=== PATIENT | female | born 1980 | race Caucasian/White ===

== ENCOUNTER → 2018-05-04 | Outpatient (CLI) | payer OTHER ==
--- NOTE | 2018-05-04 11:49 | US ---
EXAMINATION TYPE: US thyroid st tissue head/neck DATE OF EXAM: 05/04/2018 COMPARISON: NONE CLINICAL HISTORY: E04.1 Nontoxic single thyroid nodule. GLAND SIZE: Right Lobe: 4.1 x 1.4 x 1.6 cm Overall Parenchyma: homogenous Left Lobe: 4.4 x 1.2 x 1.8 cm Overall Parenchyma: heterogeneous Isthmus Thickness: 0.4 cm NODULES RIGHT: # of nodules measured on right: 1 1. 0.6 X 0.4 x 0.5 cm isoechoic solid nodule at the mid pole with well-defined margins. This nodul e is wider than tall and shows intranodular vascularity. No prior at this facility. LEFT: # of nodules measured on left: 2 1. 1.5 X 1.1 x 1.2 cm isoechoic mixed nodule at the lower pole with well-defined margins. This nodu le is wider than tall and shows no intranodular vascularity. No prior at this facility. 2. 0.8 X 0.6 x 0.9 cm isoechoic solid nodule at the upper pole with well-defined margins. This nodu le is wider than tall and shows intranodular vascularity. No prior at this facility. ISTHMUS: # of nodules measured in the isthmus: 1 1. 0.8 X 0.6 x 0.6 cm hypoechoic solid nodule at the right pole with well-defined margins. This no dule is wider than tall and shows intranodular vascularity. No prior at this facility. Bilateral neck scanned, no evidence of lymphadenopathy. IMPRESSION: Findings compatible with multinodular goiter. Dominant nodule lower pole left lobe of the gland.
== END | disposition home or self-care (01) ==
LOC: RADUSWWP 10:10
DX: E04.2 Nontoxic multinodular goiter (principal)
CPT/HCPCS: 76536

== ENCOUNTER 2018-05-12 07:51 | Emergency (ER) | payer MEDICAID, OTHER ==
[2018-05-12] MEDS ORDERED: SODIUM CHLORIDE 0.9% 500 ML 500 ML IV STA (08:34)
[2018-05-12] MEDS ORDERED: valACYclovir 500 MG TAB PO STA (08:35)
[2018-05-12] MEDS ORDERED: predniSONE 20 MG TAB PO STA (08:52)
--- NOTE | 2018-05-12 08:55 | ED ---
General Adult HPI - General Chief complaint: Neuro Symptoms/Deficit Stated complaint: facial droop Time Seen by Provider: 05/12/18 08:05 Source: patient, RN notes reviewed Mode of arrival: ambulatory Limitations: no limitations - History of Present Illness Initial comments: This is a 37-year-old female comes in complaining of left-sided facial droop. Patient states she woke up with a facial droop. Patient states the lesion she noticed yesterday before bed was that she was having some tingling in the left side of her tongue. Patient states she woke up today and was having a hard time closing her eye and forming a normal smile. Patient states the side of her face is tingly but not numb. Patient denies any loss of vision patient denies any significant speech disturbance aside from the droopiness making a little mumbles. Patient denies any numbness or weakness. Patient denies any chest pain palpitations difficulty breathing shortness of breath per patient denies any recent fever chills or cough. Patient denies any upper respiratory infection recently. Patient states she's never had symptoms similar to this in the past. - Related Data Previous Rx's Medication Instructions Recorded predniSONE 30 mg PO BID 10 Days tab 05/12/18 valACYclovir HCL [Valacyclovir] 1,000 mg PO Q8H 10 Days tab 05/12/18 Allergies Allergy/AdvReac Type Severity Reaction Status Date / Time No Known Allergies Allergy Verified 05/12/18 08:26 Review of Systems ROS Statement: Those systems with pertinent positive or pertinent negative responses have been documented in the HPI. ROS Other: All systems not noted in ROS Statement are negative. Past Medical History Past Medical History: No Reported History History of Any Multi-Drug Resistant Organisms: None Reported Past Surgical History: No Surgical Hx Reported Past Psychological History: No Psychological Hx Reported Smoking Status: Current every day smoker Past Alcohol Use History: None Reported Past Drug Use History: None Reported General Exam - General Exam Comments Initial Comments: GENERAL: Patient is well-developed and well-nourished. Patient is nontoxic and well- hydrated and is in mild distress. ENT: Neck is soft and supple. No significant lymphadenopathy is noted. Oropharynx is clear. Moist mucous membranes. Neck has full range of motion without eliciting any pain. EYES: The sclera were anicteric and conjunctiva were pink and moist. Extraocular movements were intact and pupils were equal round and reactive to light. Eyelids were unremarkable. PULMONARY: Unlabored respirations. Good breath sounds bilaterally. No audible rales rhonchi or wheezing was noted. CARDIOVASCULAR: There is a regular rate and rhythm without any murmurs gallops or rubs. ABDOMEN: Soft and nontender with normal bowel sounds. No palpable organomegaly was noted. There is no palpable pulsatile mass. SKIN: Skin is clear with no lesions or rashes and otherwise unremarkable. NEUROLOGIC: Patient is alert and oriented x3. Left-sided facial droop including her forehead. Motor and sensory are also intact. Normal speech, volume and content. Symmetrical smile. MUSCULOSKELETAL: Normal extremities with adequate strength and full range of motion. LYMPHATICS: No significant lymphadenopathy is noted PSYCHIATRIC: Normal psychiatric evaluation. Limitations: no limitations Course Vital Signs 05/12/18 05/12/18 05/12/18 08:07 08:30 09:30 Temperature 98.3 F 98 F Pulse Rate 90 76 81 Respiratory 18 18 18 Rate Blood Pressure 140/89 120/93 130/93 O2 Sat by Pulse 97 97 97 Oximetry 05/12/18 10:20 Temperature Pulse Rate 82 Respiratory 16 Rate Blood Pressure 132/90 O2 Sat by Pulse 98 Oximetry Medical Decision Making - Medical Decision Making EKG shows normal sinus rhythm at 81 bpm [place] interval is on a 46 dresses 80 QT interval 394 QTC is 457. Patient's EKG shows no ST segment elevation or depression or T-wave abnormalities noted. CT of the brain shows no acute abnormality. Patient has definite forehead involvement on the left. - Lab Data Result diagrams: 05/12/18 09:10 05/12/18 09:10 Lab Results 05/12/18 05/12/18 05/12/18 Range/Units 09:10 09:10 09:10 WBC 7.3 (3.8-10.6) k/uL RBC 4.52 (3.80-5.40) m/uL Hgb 13.5 (11.4-16.0) gm/dL Hct 41.2 (34.0-46.0) % MCV 91.2 (80.0-100.0) fL MCH 29.9 (25.0-35.0) pg MCHC 32.8 (31.0-37.0) g/dL RDW 13.7 (11.5-15.5) % Plt Count 352 (150-450) k/uL Neutrophils % 56 % Lymphocytes % 29 % Monocytes % 9 % Eosinophils % 3 % Basophils % 1 % Neutrophils # 4.1 (1.3-7.7) k/uL Lymphocytes # 2.1 (1.0-4.8) k/uL Monocytes # 0.6 (0-1.0) k/uL Eosinophils # 0.2 (0-0.7) k/uL Basophils # 0.1 (0-0.2) k/uL PT (9.0-12.0) sec INR (<1.2) APTT (22.0-30.0) sec Sodium 142 (137-145) mmol/L Potassium 4.1 (3.5-5.1) mmol/L Chloride 110 H (98-107) mmol/L Carbon Dioxide 24 (22-30) mmol/L Anion Gap 8 mmol/L BUN 14 (7-17) mg/dL Creatinine 0.74 (0.52-1.04) mg/dL Est GFR (CKD-EPI)AfAm >90 (>60 ml/min/1.73 sqM) Est GFR (CKD-EPI)NonAf >90 (>60 ml/min/1.73 sqM) Glucose 95 (74-99) mg/dL Calcium 9.9 (8.4-10.2) mg/dL Total Bilirubin 0.5 (0.2-1.3) mg/dL AST 18 (14-36) U/L ALT 26 (9-52) U/L Alkaline Phosphatase 85 (38-126) U/L Total Creatine Kinase 79 (30-135) U/L CK-MB (CK-2) 0.4 (0.0-2.4) ng/mL CK-MB (CK-2) Rel Index 0.5 Troponin I <0.012 (0.000-0.034) ng/mL Total Protein 7.6 (6.3-8.2) g/dL Albumin 4.2 (3.5-5.0) g/dL 05/12/18 Range/Units 09:10 WBC (3.8-10.6) k/uL RBC (3.80-5.40) m/uL Hgb (11.4-16.0) gm/dL Hct (34.0-46.0) % MCV (80.0-100.0) fL MCH (25.0-35.0) pg MCHC (31.0-37.0) g/dL RDW (11.5-15.5) % Plt Count (150-450) k/uL Neutrophils % % Lymphocytes % % Monocytes % % Eosinophils % % Basophils % % Neutrophils # (1.3-7.7) k/uL Lymphocytes # (1.0-4.8) k/uL Monocytes # (0-1.0) k/uL Eosinophils # (0-0.7) k/uL Basophils # (0-0.2) k/uL PT 9.9 (9.0-12.0) sec INR 1.0 (<1.2) APTT 27.1 (22.0-30.0) sec Sodium (137-145) mmol/L Potassium (3.5-5.1) mmol/L Chloride (98-107) mmol/L Carbon Dioxide (22-30) mmol/L Anion Gap mmol/L BUN (7-17) mg/dL Creatinine (0.52-1.04) mg/dL Est GFR (CKD-EPI)AfAm (>60 ml/min/1.73 sqM) Est GFR (CKD-EPI)NonAf (>60 ml/min/1.73 sqM) Glucose (74-99) mg/dL Calcium (8.4-10.2) mg/dL Total Bilirubin (0.2-1.3) mg/dL AST (14-36) U/L ALT (9-52) U/L Alkaline Phosphatase (38-126) U/L Total Creatine Kinase (30-135) U/L CK-MB (CK-2) (0.0-2.4) ng/mL CK-MB (CK-2) Rel Index Troponin I (0.000-0.034) ng/mL Total Protein (6.3-8.2) g/dL Albumin (3.5-5.0) g/dL Disposition Clinical Impression: Rodriguez's palsy Disposition: HOME SELF-CARE Condition: Good Prescriptions: predniSONE 30 mg PO BID 10 Days tab valACYclovir HCL [Valacyclovir] 1,000 mg PO Q8H 10 Days tab Is patient prescribed a controlled substance at d/c from ED?: No Referrals: Ever Celis III, MD [Primary Care Provider] - 1-2 days Time of Disposition: 10:29
[2018-05-12 09:09] VITALS: TEMP 98
[2018-05-12 09:21] LABS: Basophils # (A) 0.1 k/uL (0-0.2); Basophils % (A) 1 %; Eosinophils # (A) 0.2 k/uL (0-0.7); Eosinophils % (A) 3 %; HCT 41.2 % (34.0-46.0); HGB 13.5 gm/dL (11.4-16.0); Lymphocytes # (A) 2.1 k/uL (1.0-4.8); Lymphocytes % (A) 29 %; MCH 29.9 pg (25.0-35.0); MCHC 32.8 g/dL (31.0-37.0); MCV 91.2 fL (80.0-100.0); Mean Platelet Volume 6.4; Monocytes # (A) 0.6 k/uL (0-1.0); Monocytes % (A) 9 %; Neutrophils # (A) 4.1 k/uL (1.3-7.7); Neutrophils % (A) 56 %; Platelet Count 352 k/uL (150-450); RBC 4.52 m/uL (3.80-5.40); RDW 13.7 % (11.5-15.5); WBC 7.3 k/uL (3.8-10.6)
[2018-05-12 09:33] LABS: Partial Thromboplastin Time 27.1 sec (22.0-30.0); Prothrombin Time 9.9 sec (9.0-12.0)
[2018-05-12 09:35] LABS: ALT 26 U/L (9-52); AST 18 U/L (14-36); Albumin 4.2 g/dL (3.5-5.0); Alkaline Phosphatase 85 U/L (38-126); Anion Gap 8 mmol/L; Blood Urea Nitrogen 14 mg/dL (7-17); Calcium 9.9 mg/dL (8.4-10.2); Carbon Dioxide 24 mmol/L (22-30); Chloride 110 mmol/L (98-107); Glucose 95 mg/dL (74-99); Potassium 4.1 mmol/L (3.5-5.1); Sodium 142 mmol/L (137-145); Total Bilirubin 0.5 mg/dL (0.2-1.3); Total Protein 7.6 g/dL (6.3-8.2)
[2018-05-12 09:41] LABS: Creatine Kinase 79 U/L (30-135)
--- NOTE | 2018-05-12 09:48 | CT ---
EXAMINATION TYPE: CT brain wo con DATE OF EXAM: 05/12/2018 COMPARISON: 05/27/2014 HISTORY: Neuro deficits. Right-sided facial droop. CT DLP: 801.3 mGycm. Automated Exposure Control for Dose Reduction was Utilized. TECHNIQUE: CT scan of the head is performed without contrast. FINDINGS: There is no acute intracranial hemorrhage, mass effect, or midline shift identified. Lo t dystrophic calcifications are seen within the basal ganglia. The ventricles and sulci are within n ormal limits in size. No suspicious extra-axial fluid collection. Mild mucosal thickening is present within the left maxillary sinus. The globes are intact and the remaining visualized sinuses are karen r. IMPRESSION: No acute intracranial hemorrhage, mass effect, or midline shift is seen. Given the patie nt's right-sided facial droop MRI could be performed for increased sensitivity of acute infarct.
--- NOTE | 2018-05-12 09:48 | XR ---
EXAMINATION TYPE: XR chest 2V DATE OF EXAM: 05/12/2018 COMPARISON: Prior chest x-ray 02/03/2015 HISTORY: Altered mental status TECHNIQUE: Frontal and lateral views of the chest are obtained. FINDINGS: There is no focal air space opacity, pleural effusion, or pneumothorax seen. The cardiac silhouette size is within normal limits. The osseous structures are intact. There are overlying car diac leads. IMPRESSION: No acute cardiopulmonary process.
[2018-05-12 09:55] LABS: Creatine Kinase MB 0.4 ng/mL (0.0-2.4); Troponin I <0.012 ng/mL (0.000-0.034)
[2018-05-12] MEDS ORDERED: ACETAMINOPHEN TAB 325 MG TAB PO STA (10:12)
[2018-05-12 10:21] VITALS: BP 132/90; PULSE 82; RESP 16
== END 2018-05-12 10:43 | disposition home or self-care (01) ==
LOC: EC 07:51
DX: G51.0 Bell's palsy (principal); F17.200 Nicotine dependence, unspecified, uncomplicated
CPT/HCPCS: 36415; 93005; 80053; 82550; 82553; 84484; 85025; 85610; 85730; 71046; 70450; 99285; 96360; 96361; J7512

== ENCOUNTER → 2018-06-03 | Outpatient (CLI) | payer MEDICAID, OTHER ==
--- NOTE | 2018-06-03 10:16 | CT ---
EXAMINATION TYPE: CT iac w con DATE OF EXAM: 06/03/2018 COMPARISON: CT brain dated 05/12/2018 HISTORY: Left ear otalgia, fluid build up, Reeves palsy CT DLP: 150 mGycm Automated exposure control for dose reduction was used. CONTRAST: CT scan of the IACs is performed with IV Contrast, patient injected with 100 mL of Isovue 300. FINDINGS: There is partial opacification of the left mastoid air cells. External auditory canal remai ns patent. The vestibules and semicircular canals are symmetric. Porus acusticus are also symmetric a nd unremarkable. The left tympanic membrane appears retracted and there is focal linear density withi n Prussak's space on the left. There is no blunting of the scutum. Ossicles are unremarkable. Rounded and oval windows are also unremarkable. No evidence of superior semicircular canal dehiscence. No mi ddle ear cavity fluid bilaterally. External auditory canals appear patent. Osseous structures appear intact. The visualized paranasal sinuses demonstrate mild mucosal thickenin g within the ethmoid sinuses but are otherwise well aerated. Right mastoid air cells are also well ae rated. Exam is suboptimal for evaluation of intracranial structures however the left vertebral artery appear s to be hypoplastic with right dominance. IMPRESSION: 1. Partial opacification of the left mastoid air cells that should be clinically correlate with pain to evaluate for mastoiditis. 2. Retraction of the left tympanic membrane and fine linear density within Prussak's space that may r epresent fibrotic tissue or granulation tissue up chronic otitis or otomastoiditis. This could much l ess likely represent a developing cholesteatoma, unlikely given the linear morphology and additional finding of no blunting of the scutum.
== END | disposition home or self-care (01) ==
LOC: RADCTMAIN 07:02
PROVIDERS: ATTEND Internal Medicine
DX: H92.02 Otalgia, left ear (principal); G51.0 Bell's palsy; R22.0 Localized swelling, mass and lump, head
CPT/HCPCS: 70481; Q9967

== ENCOUNTER → 2018-07-13 | Outpatient (CLI) | payer MEDICAID, OTHER ==
[2018-07-13 17:11] LABS: T4, Free (Free Thyroxine) 1.1 ng/dL (0.80-1.80)
== END | disposition home or self-care (01) ==
LOC: LABWHC1 09:56
PROVIDERS: ATTEND Internal Medicine Endocrinology, Diabetes & Metabolism
DX: D35.2 Benign neoplasm of pituitary gland (principal); E04.2 Nontoxic multinodular goiter
CPT/HCPCS: 36415; 84146; 84439; 84443

== ENCOUNTER 2018-07-20 10:00 | Day surgery (SDC) | payer MEDICAID, OTHER ==
[2018-07-20 10:35] VITALS: TEMP 98.1
[2018-07-20] MEDS ORDERED: ALPRAZolam 0.5 MG TAB PO STA (10:41)
--- NOTE | 2018-07-20 11:34 | US ---
ULTRASOUND GUIDED FNA THYROID BIOPSY: CLINICAL HISTORY: 1.4 cm left thyroid nodule FINDINGS: The procedure was explained to the patient. The risks, complications, benefits and alternatives were discussed and any questions were answered. Informed consent was obtained. Patient was placed supin e on the ultrasound table and prepped and draped in the usual sterile fashion. Utilizing a 25 gauge needle, five passes were made into the requested left thyroid nodule. Patient was stable throughout the procedure. Pathology is pending. All elements of maximal barrier technique were utilized. IMPRESSION: 1. Successful ultrasound guided FNA thyroid biopsy.
[2018-07-20 11:53] VITALS: BP 126/85; PULSE 81; RESP 16
== END 2018-07-20 11:40 | disposition home or self-care (01) ==
LOC: RADPROMAIN 10:00
PROVIDERS: ATTEND Internal Medicine Endocrinology, Diabetes & Metabolism
DX: E04.1 Nontoxic single thyroid nodule (principal)
CPT/HCPCS: 10005; 76942; 88173; 88305

== ENCOUNTER → 2018-09-07 | Outpatient (CLI) | payer MEDICAID, OTHER ==
--- NOTE | 2018-09-08 11:10 | MM ---
Reason for exam: screening (asymptomatic). Physical Findings: A clinical breast exam by your physician is recommended on an annual basis and results should be correlated with mammographic findings. MG 3D Screening Mammo W/Cad Bilateral CC and MLO view(s) were taken. The breast tissue is heterogeneously dense. This may lower the sensitivity of mammography. No suspicious abnormality. ASSESSMENT: Negative, BI-RAD 1 RECOMMENDATION: Routine screening mammogram of both breasts in 1 year.
== END | disposition home or self-care (01) ==
LOC: RADMAMWWP 07:58
PROVIDERS: ATTEND Obstetrics & Gynecology
DX: Z12.31 Encounter for screening mammogram for malignant neoplasm of breast (principal)
CPT/HCPCS: 77063; 77067

== ENCOUNTER → 2018-11-24 | Outpatient (CLI) | payer MEDICAID, OTHER | END | disposition home or self-care (01) | LOC: LABWHC1 16:11 | PROVIDERS: ATTEND Internal Medicine Endocrinology, Diabetes & Metabolism | DX: D35.2 Benign neoplasm of pituitary gland (principal); E03.8 Other specified hypothyroidism | CPT/HCPCS: 36415; 84146; 84443 ==

== ENCOUNTER → 2018-12-04 | Outpatient (CLI) | payer MEDICAID, OTHER ==
[2018-12-07 16:30] LABS: Thyroid Stim Immun Quant <0.10 IU/L (<0.10)
[2018-12-07 16:31] LABS: Thyroxine Binding Globulin 20.5 ug/mL (14.0 - 31.0)
== END | disposition home or self-care (01) ==
LOC: LABWHC1 15:01
PROVIDERS: ATTEND Internal Medicine
DX: E03.9 Hypothyroidism, unspecified (principal); H02.432 Paralytic ptosis of left eyelid
CPT/HCPCS: 36415; 83519; 84442; 84445; 86376

== ENCOUNTER → 2019-05-25 | Outpatient (CLI) | payer MEDICAID, OTHER ==
--- NOTE | 2019-05-25 14:54 | US ---
EXAMINATION TYPE: US thyroid st tissue head/neck DATE OF EXAM: 05/25/2019 COMPARISON: Thyroid ultrasound May 04, 2018 and older studies. CLINICAL HISTORY: E04.2 NONTOXIC MULTINODULAR GOITER. Thyroid nodules. GLAND SIZE: Right Lobe: 3.8 x 1.3 x 1.5 cm Overall Parenchyma: heterogenous Left Lobe: 4.0 x 1.4 x 1.9 cm Overall Parenchyma: heterogeneous Isthmus Thickness: .3 cm NODULES RIGHT: # of nodules measured on right: 1 1. 1.2 X .9 x 1.0 cm solid nodule at the mid pole with poorly defined margins. This nodule is tall er than wide and shows intranodular vascularity. Prior size: .6 x .4 x .5 cm LEFT: # of nodules measured on left: 1 1. 1.3 x X .9 x 1.1 cm hypoechoic solid nodule at the lower pole with poorly defined margins; . T his nodule is wider than tall and shows intranodular vascularity. Prior size: 1.5 x 1.1 x 1.2 cm ISTHMUS: # of nodules measured in the isthmus: 0 Bilateral neck scanned, no evidence of lymphadenopathy. Nodules seen on previous not clearly seen on today's study. Question right parathyroid vs. septation. Heterogeneous somewhat small size thyroid with few scattered small nodules on current study. Due to t he heterogeneity difficult to compare with prior. IMPRESSION: No definitive new greater than 1 cm nodules.
== END | disposition home or self-care (01) ==
LOC: RADUSWWP 13:31
PROVIDERS: ATTEND Internal Medicine Endocrinology, Diabetes & Metabolism
DX: E04.2 Nontoxic multinodular goiter (principal)
CPT/HCPCS: 76536

== ENCOUNTER → 2020-01-03 | Outpatient (CLI) | payer MEDICAID, OTHER ==
--- NOTE | 2020-01-05 10:27 | MM ---
Reason for exam: screening (asymptomatic). Last mammogram was performed 1 year and 4 months ago. History: Patient has history of other cancer at age 17. Benign excisional biopsy of the left breast, 2007. Physical Findings: A clinical breast exam by your physician is recommended on an annual basis and results should be correlated with mammographic findings. MG 3D Screening Mammo W/Cad Bilateral CC and MLO view(s) were taken. Prior study comparison: September 07, 2018, bilateral MG 3d screening mammo w/cad. The breast tissue is heterogeneously dense. This may lower the sensitivity of mammography. No significant changes when compared with prior studies. ASSESSMENT: Benign, BI-RAD 2 RECOMMENDATION: Routine screening mammogram of both breasts in 1 year.
== END | disposition home or self-care (01) ==
LOC: RADMAMWWP 09:08
PROVIDERS: ATTEND Internal Medicine
DX: Z12.31 Encounter for screening mammogram for malignant neoplasm of breast (principal)
CPT/HCPCS: 77063; 77067

== ENCOUNTER → 2020-01-18 | Outpatient (CLI) | payer MEDICAID, OTHER ==
--- NOTE | 2020-01-18 15:10 | US ---
EXAMINATION TYPE: US thyroid st tissue head/neck DATE OF EXAM: 01/18/2020 COMPARISON: CT CLINICAL HISTORY: E04.2 NONTOXIC MULTINODULAR GOITER. Takes thyroid medication; difficulty swallowing . GLAND SIZE: Right Lobe: 4.0 x 1.6 x 1.5 cm Overall Parenchyma: heterogenous Left Lobe: 3.8 x 1.5 x 1.1 cm Overall Parenchyma: heterogeneous Isthmus Thickness: 0.3 cm NODULES RIGHT: # of nodules measured on right: 1 1. 0.6 X 0.6 x 0.5 cm isoechoic mixed nodule at the mid pole with poorly defined margins. This nod ule is wider than tall and shows no intranodular vascularity. Prior size: 1.2 x 0.9 x 1.0 cm LEFT: # of nodules measured on left: 1 1. 1.0 X 0.8 x 0.8 cm echogenic mixed nodule at the lower pole with well-defined margins. This nod ule is wide as is tall and shows intranodular vascularity. Prior size: 1.3 x 0.9 x 1.1 cm ISTHMUS: # of nodules measured in the isthmus: 0 Bilateral neck scanned: Lymph node seen superior to right thyroid = 1.2 x 0.5 x 0.4cm. IMPRESSION: Nonspecific Thyroid nodularity as noted above
== END | disposition home or self-care (01) ==
LOC: RADUSWWP 14:27
PROVIDERS: ATTEND Internal Medicine Endocrinology, Diabetes & Metabolism
DX: E04.2 Nontoxic multinodular goiter (principal)
CPT/HCPCS: 76536

== ENCOUNTER → 2020-01-25 | Outpatient (CLI) | payer MEDICAID, OTHER ==
--- NOTE | 2020-01-26 07:08 | CT ---
EXAMINATION TYPE: CT soft tissue neck wo/w con DATE OF EXAM: 01/25/2020 HISTORY: Difficulty swallowing. COMPARISON: Thyroid ultrasound January 18, 2020. CT DLP: 1415 mGycm. Automated Exposure Control for Dose Reduction was Utilized. TECHNIQUE: CT scan of the neck is performed without and with IV Contrast, patient injected with 100m l mL of Isovue 300, axial images are obtained, coronal and sagittal reformatted images are reviewed. FINDINGS: Airway: No gross abnormality seen. Parotid/submandibular glands: No gross abnormality seen. Carotid/Vascular Structures: Dominant right vertebral artery incidentally noted. Osseous Structures: No gross abnormalities seen. Other: No greater than 1 cm neck adenopathy. Scattered subcentimeter lymph nodes throughout the neck bilaterally. Parapharyngeal fat spaces are maintained. IMPRESSION: No significant abnormality is seen to account for patient's symptoms of dysphagia.
== END | disposition home or self-care (01) ==
LOC: RADCTMAIN 16:44
PROVIDERS: ATTEND Internal Medicine
DX: R13.10 Dysphagia, unspecified (principal)
CPT/HCPCS: 70492; Q9967

== ENCOUNTER → 2020-02-11 | Outpatient (CLI) | payer MEDICAID, OTHER ==
--- NOTE | 2020-02-12 07:36 | FL ---
Modified barium swallow. HISTORY: Dysphagia. Modified barium swallow was performed with the department of speech pathology. The patient was prese nted with various consistencies of barium. There is no evidence for aspiration or penetration. There is minimal prominence of the cricopharynge us musculature. Full report is to follow from the department of speech pathology. Impression: There is minimal prominence of the cricopharyngeus musculature.
== END | disposition home or self-care (01) ==
LOC: RADFLMAIN 10:59
PROVIDERS: ATTEND Internal Medicine
DX: R13.10 Dysphagia, unspecified (principal)
CPT/HCPCS: 74230

== ENCOUNTER 2020-04-05 07:31 | Day surgery (SDC) | payer MEDICAID, OTHER ==
[2020-03-31 14:55] VITALS: BMI 41.3
[~2020-04-05 07:31] MED LIST: LACTATED RINGERS 1,000 ML IV SCH; LIDOCAINE 1% (10MG/ML) FOR IV START INTRADERMA PRN
[2020-04-05 07:55] VITALS: TEMP 97.6
[2020-04-05] MEDS ORDERED: GLYCOPYRROLATE 0.2 MG/ML 2 ML VIAL ONE (08:26)
[2020-04-05] MEDS ORDERED: LIDOCAINE 1% INJ 10MG/ML (20 ML MDV) ONE (08:26)
[2020-04-05] MEDS ORDERED: PROPOFOL 10 MG/ML 20 ML VIAL IV ONE (08:26)
--- NOTE | 2020-04-05 08:40 | P.PCN ---
Date of Procedure: 04/05/20 Procedure(s) Performed: BRIEF HISTORY: Patient is a 39-year-old, pleasant, white female scheduled for an upper endoscopy as a part of evaluation of intermittent dysphagia to solids for the last 6 months duration.symptoms have been progressively getting worse and lately has been having dysphagia to solids and liquids almost on a daily basis. She does have occasional heartburn. No recent weight loss. PROCEDURE PERFORMED: Esophagogastroduodenoscopywith biopsy PREOPERATIVE DIAGNOSIS: Dysphagia to solids and liquids of 6 months duration. IV sedation per anesthesia. PROCEDURE: After informed consent was obtained, the patient was brought into the endoscopy unit. IV sedation was administered by Anesthesia under continuous monitoring. Initially the Olympus GIF-140 video endoscope was inserted into the mouth. Esophagus intubated without any difficulty. It was gradually advanced into the stomach and duodenum and carefully examined. The bulb and the second part of the duodenum appeared normal. The scope at this time was withdrawn to the stomach, adequately insufflated with air, and upon careful examination, mucosa of the antrum, body, cardia and the fundus appeared normal. The scope was then withdrawn into the esophagus. The GE junction was located at 39 cm from the incisors. The esophagus appeared normal. There were no erosions or ulcerations seen and the patient tolerated the procedure well. IMPRESSION: 1. Linear erosions in the distal esophagus consistent with LA grade B reflux e sophagitis but no evidence of esophageal stricture. 2. Diffuse gastritis involving the entire antrum with superficial erosions and small ulcerations status post biopsy. RECOMMENDATIONS: The findings of this examination were discussed with the patient as well as a family. She was advised to follow with the biopsy results.dysphagia could be expanded basis of gastroesophageal reflux disease. She will start on Prilosec 20 mg daily and follow antireflux measures.. she was advised to follow up in office in 2 months. 39
[2020-04-05 08:59] VITALS: BP 109/77; PULSE 91; RESP 16
== END 2020-04-05 09:35 | disposition home or self-care (01) ==
LOC: ORWHC2ENDO 07:31
PROVIDERS: ATTEND Internal Medicine Gastroenterology
DX: K29.50 Unspecified chronic gastritis without bleeding (principal); K22.10 Ulcer of esophagus without bleeding; K25.9 Gastric ulcer, unspecified as acute or chronic, without hemorrhage or perforation; F17.210 Nicotine dependence, cigarettes, uncomplicated; Z79.890 Hormone replacement therapy; Z79.899 Other long term (current) drug therapy; Z88.7 Allergy status to serum and vaccine; Z98.51 Tubal ligation status; Z85.820 Personal history of malignant melanoma of skin
CPT/HCPCS: 81025; 88305; 43239; J2001; J2704

== ENCOUNTER → 2020-04-05 | Outpatient (CLI) | payer MEDICAID, OTHER ==
--- NOTE | 2020-04-05 22:39 | MR ---
EXAMINATION TYPE: MR iac wo/w con DATE OF EXAM: 04/05/2020 COMPARISON: CT brain May 12, 2018. HISTORY: Left facial weakness and swelling, right ear hearing loss TECHNIQUE: Multiplanar, multisequence images of the brain and brainstem is performed without and with IV contras t, utilizing 9.5 mL intravenous Gadavist . Acoustic nerve disorder protocol. FINDINGS: Diffusion weighted images demonstrate no evidence of a recent infarct or other diffusion ab normality. There is no extra-axial fluid collection or significant white matter signal abnormality. The ventricular system and cisternal spaces are normal in size and appearance. The brain volume is age appropriate. Midline structures demonstrate normal morphology. The craniocervical junction appears within normal limits. Post contrast images demonstrate no abnormal enhancement. The dural venous sinuses appear pa tent. The visualized sinuses are clear and the globes are intact. Some patchy increased fluid signal left mastoid air cells. Vestibulocochlear complexes are symmetric and felt within normal limits. There is no suspicious enhancing cerebellopontine angle mass identifie d bilaterally. IMPRESSION: No significant white matter changes. Possible left-sided mastoiditis otherwise unremarkab le study.
== END | disposition home or self-care (01) ==
LOC: RADMRIMAIN 21:23
PROVIDERS: ATTEND Otolaryngology
DX: R29.810 Facial weakness (principal); R22.0 Localized swelling, mass and lump, head
CPT/HCPCS: 70553; A9585

== ENCOUNTER → 2020-05-01 | Outpatient (CLI) | payer MEDICAID ==
--- NOTE | 2020-05-01 19:52 | MR ---
EXAMINATION TYPE: MR pituitary wo/w con DATE OF EXAM: 05/01/2020 COMPARISON: MRI pituitary gland May 09, 2014 HISTORY: F/U pituitary adenoma TECHNIQUE: Multiplanar, multisequence images of the brain and brainstem is performed without and with IV contras t, utilizing 9.5 mL intravenous Gadavist . Exam performed under pituitary gland protocol. FINDINGS: Pituitary gland is not enlarged within the sella turcica. It has superior concave margin. A ppearance similar to prior study. Pituitary stalk shows normal enhancement in the midline on coronal image 11. Postcontrast images show slightly heterogeneous enhancement without definitive area of new nonenhancement. Persistent posterior 6 mm right superior area of heterogeneous increased T1 and sligh t increased T2 signal seen best coronal image 12 series 301 is well seen on sagittal images current s tudy where prior study show better visualization on sagittal images without definitive enhancement. P ossible microadenoma. Overall I do not appreciate significant change from prior MRI accounting for te chnical differences. Suprasellar cistern is maintained. Craniocervical junction is preserved. No hydrocephalus. Optic chiasm is not effaced. IMPRESSION: Overall stable findings, possible stable roughly 5 mm posterior right microadenoma.
== END | disposition home or self-care (01) ==
LOC: RADMRIMAIN 18:38
PROVIDERS: ATTEND Internal Medicine Endocrinology, Diabetes & Metabolism
DX: D35.2 Benign neoplasm of pituitary gland (principal)
CPT/HCPCS: 70553; A9585

== ENCOUNTER → 2021-02-12 | Outpatient (CLI) | payer MEDICAID, OTHER ==
--- NOTE | 2021-02-13 07:19 | US ---
EXAMINATION TYPE: US thyroid st tissue head/neck DATE OF EXAM: 02/12/2021 COMPARISON: Multiple Ultrasounds, 01/18/2020 CLINICAL HISTORY: E04.2 NONTOXIC MULTINODULAR GOITER. GLAND SIZE: Right Lobe: 3.6 x 1.3 x1.3 cm Overall Parenchyma: heterogenous Left Lobe: 3.7 x 1.5 x 1.2 cm Overall Parenchyma: heterogeneous Isthmus Thickness: 0.4 cm NODULES RIGHT: # of nodules measured on right: 0 LEFT: # of nodules measured on left: 1 1. 1.1 X 0.8 x 0.9 cm solid or almost completely solid, hypoechoic nodule, which is wider than tall , with smooth margins, without echogenic foci. Prior size: 1.0 x 0.8 x 0.8 cm ISTHMUS: # of nodules measured in the isthmus: 0 Bilateral neck scanned, no evidence of lymphadenopathy. There are bilateral soft tissue densities inferior to thyroid lobes, the right side measures 0.9 x 0. 6 x 1.0 and on the left measures 0.8 x 0.5 x 0.9 cm, question parathyroid adenomas. IMPRESSION: 1. Stable 1.1 cm nodule left lobe of thyroid. 2. Bilateral soft tissue densities inferior to the thyroid lobes as measured above. Possibly related to lymph nodes versus parathyroid adenomas. 2017 ACR TI-RADS LEVEL: TR-RADS 4 - Moderately Suspicious: Follow if > 1 cm, FNA if > 1.5 cm *Highest TI-RADS level nodule reported
== END | disposition home or self-care (01) ==
LOC: RADUSWWP 16:08
PROVIDERS: ATTEND Internal Medicine Endocrinology, Diabetes & Metabolism
DX: E04.1 Nontoxic single thyroid nodule (principal)
CPT/HCPCS: 76536

== ENCOUNTER → 2022-03-30 | Outpatient (CLI) | payer OTHER ==
[2022-03-30 16:32] LABS: HCT 36.2 % (37.2-46.3); HGB 11.2 g/dL (12.0-15.0); MCH 26.4 pg (27.0-32.0); MCHC 30.9 g/dL (32.0-37.0); MCV 85.4 fL (80.0-97.0); Mean Platelet Volume 10.3 fL (9.5-12.2); NRBC Per 100 WBC 0 /100 WBCS (0.0-0.0); Platelet Count 420 X 10*3/uL (140-440); RBC 4.24 X 10*6/uL (4.10-5.20); RDW 16.1 % (11.5-14.5); WBC 8.16 X 10*3/uL (4.50-10.00)
[2022-03-30 17:02] LABS: ALT 12 U/L (8-44); AST 13 U/L (13-35); African American GFR (CKD) 93.8 (60.0-200.0); Albumin/Globulin Ratio 1.32 (1.60-3.17); Alkaline Phosphatase 96 U/L (41-126); BUN/Creat Ratio 14.73 Ratio (12.00-20.00); Blood Urea Nitrogen 12.9 mg/dL (9.0-27.0); Calcium 9.1 mg/dL (8.7-10.3); Carbon Dioxide 23.5 mmol/L (20.0-27.5); Chloride 104 mmol/L (96-109); Chol/HDL Ratio 4.44 Ratio; Glucose 91 mg/dL (70-110); Non-African American GFR(CKD) 80.9 (60.0-200.0); Potassium 3.5 mmol/L (3.5-5.5); Sodium 140 mmol/L (135-145)
== END | disposition home or self-care (01) ==
LOC: LABWHC1 10:14
PROVIDERS: ATTEND Internal Medicine Endocrinology, Diabetes & Metabolism
DX: Z00.00 Encounter for general adult medical examination without abnormal findings (principal); D35.2 Benign neoplasm of pituitary gland; E55.9 Vitamin D deficiency, unspecified; E04.1 Nontoxic single thyroid nodule; E03.8 Other specified hypothyroidism
CPT/HCPCS: 36415; 80053; 80061; 82306; 84146; 84439; 84443; 85027

== ENCOUNTER 2022-06-24 19:34 | Emergency (ER) | payer OTHER ==
[2022-06-24 20:27] VITALS: TEMP 98.1
[2022-06-24] MEDS ORDERED: ACETAMINOPHEN TAB 325 MG TAB PO STA (21:12)
[2022-06-24] MEDS ORDERED: IBUPROFEN 600 MG TAB PO STA (21:12)
[2022-06-24] MEDS ORDERED: DIPH,PERTUS(ACELL)TETVAC-LF 0.5 ML VIAL IM ONE (21:12)
[2022-06-24] MEDS ORDERED: LIDOCAINE 1% INJ 10MG/ML (30 ML VIAL-PF) SQ ONE (21:12)
--- NOTE | 2022-06-24 21:16 | ED ---
Wound/Laceration HPI - General Chief Complaint: Wound/Laceration Stated Complaint: R arm lac Time Seen by Provider: 06/24/22 21:09 Source: patient, RN notes reviewed, old records reviewed Mode of arrival: ambulatory Limitations: no limitations - History of Present Illness Initial Comments: This is a nontoxic-appearing 41-year-old female presents with a 1 cm laceration to the thenar surface of the right hand after cutting it on a can at home around 7 PM. Unsure of her tetanus shot is up-to-date. She does have good range of motion. No other injuries. -: hour(s) (2) Extremity Location: Right: Hand (thenar surface right ) Place: home Patient Tetanus UTD: No (unknown) Context: accidental (can lid) Associated Symptoms: none Treatments Prior to Arrival: bandage - Related Data Home Medications Medication Instructions Recorded Confirmed Levothyroxine Sodium [Synthroid] 200 mcg PO QAM 03/31/20 04/05/20 traZODone HCL [Desyrel] 50 mg PO HS 03/31/20 04/05/20 Allergies Allergy/AdvReac Type Severity Reaction Status Date / Time tuberculin, purified protein Allergy arm swelled Verified 06/24/22 20:27 deriva Review of Systems ROS Statement: Those systems with pertinent positive or pertinent negative responses have been documented in the HPI. ROS Other: All systems not noted in ROS Statement are negative. Past Medical History Past Medical History: Cancer, Thyroid Disorder Additional Past Medical History / Comment(s): 4 thyroid nodules, melanoma left hip-having surgery to remove , hx. basal cell, cervical cancer, current Rodriguez's palsy-mostly resolved, prolactinoma History of Any Multi-Drug Resistant Organisms: None Reported Past Surgical History: Cholecystectomy, Tubal Ligation Additional Past Surgical History / Comment(s): LEEP procedure, another procedure to remove most of cervix, myringotomy & tubes Past Anesthesia/Blood Transfusion Reactions: No Reported Reaction Past Psychological History: No Psychological Hx Reported Smoking Status: Current every day smoker Past Alcohol Use History: Rare Past Drug Use History: None Reported - Past Family History Mother Family Medical History: No Reported History General Exam Limitations: no limitations General appearance: alert, in no apparent distress Head exam: Present: atraumatic, other (Left-sided facial droop diagnosed with Rodriguez's palsy) Eye exam: Present: normal appearance. Absent: scleral icterus, conjunctival injection Respiratory exam: Absent: respiratory distress, accessory muscle use Cardiovascular Exam: Present: tachycardia Right Hand Wrist exam: Present: full ROM, tenderness (1 cm laceration on the right thenar surface palmar), laceration. Absent: ecchymosis, erythema Neuro motor exam: Present: wrist extension intact, fingers 2-5 abduction intact Neurosensory exam: Present: radial nerve intact, ulnar nerve intact, median nerve intact Vascular: Present: normal capillary refill. Absent: vascular compromise Neurological exam: Present: alert, oriented X3 Psychiatric exam: Present: normal affect, normal mood Skin exam: Present: warm, dry, normal color. Absent: cyanosis, diaphoretic, petechiae, pallor Course Vital Signs 06/24/22 20:24 Temperature 98.1 F Pulse Rate 102 H Respiratory 20 Rate Blood Pressure 137/72 O2 Sat by Pulse 96 Oximetry Procedures - Laceration Laceration #1 Consent Obtained: verbal consent Indication: laceration Site: hand Size (cm): 3 Description: linear Depth: simple, single layer Anesthetic Used: lidocaine 1% Anesthesia Technique: local infiltration Pre-repair: irrigated extensively Type of Sutures: nylon Size of Sutures: 4-0 Number of Sutures: 3 Technique: simple, interrupted Patient Tolerated Procedure: well, no complications Medical Decision Making - Medical Decision Making Patient has full range of motion with flexion and extension. Wound was soaked and irrigated copiously with antibacterial soap and water. 3 sutures used to close wound. Bacitracin dressing placed. Tetanus shot was updated. Patient directed to have sutures removed in 7-10 days. Return if any new or concerning symptoms. Case discussed with Dr. Erwin. Was pt. sent in by a medical professional or institution? @ No Did you speak to anyone other than the patient for history? @ No Did you review nursing and triage notes? @ Yes I agree Were old charts reviewed? @ No Differential Diagnosis? @ Laceration, soft tissue injury, foreign body, cellulitis EKG interpreted by me (3pts min.)? @ Not applicable X-rays interpreted by me (1pt min.)? @ Not applicable CT interpreted by me (1pt min.)? @ Not applicable U/S interpreted by me (1pt. min.)? @ Not applicable What testing was considered but not performed? (CT, X-rays, U/S, labs)? Why? @ X-ray was considered however wound is superficial and there is no concern for foreign body What meds were considered but not given? Why? @ Antibiotics were considered however wound is superficial be treated with bacitracin dressing Did you discuss the management of the patient with other professionals? @ No Did you reconcile home meds? @ No Was smoking cessation discussed for >3mins.? @ Not applicable Was critical care preformed (if so, how long)? @ No Were there social determinants of health that impacted care today? How? (Homelessness, low income, unemployed, alcoholism, drug addiction, transportati on, low edu. Level, literacy, decrease access to med. care, shelter, rehab)? @ None Was there de-escalation of care discussed even if they declined? (Discuss DNR or withdrawal of care, Hospice)? @ Known What co-morbidities impacted this encounter? (DM, HTN, Smoking, COPD, CAD, Cancer, CVA, Hep., AIDS, mental health diagnosis, sleep apnea, morbid obesity)? @ No Was patient admitted / discharged? @ Discharged Undiagnosed new problem with uncertain prognosis? @ [none] Drug Therapy requiring intensive monitoring for toxicity (Heparin, Nitro, Insulin, Cardizem)? @ No Were any procedures done? @ Laceration repair Diagnosis/symptom? @ Laceration Acute, or Chronic, or Acute on Chronic? @ Acute Uncomplicated (without systemic symptoms) or Complicated (systemic symptoms)? @ Uncomplicated Side effects of treatment? @ [none] Exacerbation, Progression, or Severe Exacerbation] @ [no] Poses a threat to life or bodily function? @ [no] Disposition Clinical Impression: Laceration Disposition: HOME SELF-CARE Condition: Good Instructions (If sedation given, give patient instructions): Care For Your Stitches (ED), Laceration (ED) Additional Instructions: Keep wound clean and dry. Change dressing tomorrow and put Neosporin or bacitracin dressing on once a day. Sutures to be removed in 7-10 days return to the emergency room with any new or concerning symptoms. Is patient prescribed a controlled substance at d/c from ED?: No Referrals: Teresa Baires MD [Primary Care Provider] - 1-2 days Time of Disposition: 22:09
[2022-06-24] MEDS ORDERED: BACITRACIN OINT 1 EACH PACKET TOPICAL ONE (22:07)
[2022-06-24 22:39] VITALS: BP 121/84; PULSE 77; RESP 18
== END 2022-06-24 22:39 | disposition home or self-care (01) ==
LOC: EC 19:34
DX: S61.411A Laceration without foreign body of right hand, initial encounter (principal); E07.9 Disorder of thyroid, unspecified; F17.200 Nicotine dependence, unspecified, uncomplicated; Z88.8 Allergy status to other drugs, medicaments and biological substances; Z79.890 Hormone replacement therapy; Z23 Encounter for immunization; W26.8XXA Contact with other sharp object(s), not elsewhere classified, initial encounter; Y92.019 Unspecified place in single-family (private) house as the place of occurrence of the external cause
CPT/HCPCS: 90715; 99282; 90471; 12002; J2001

== ENCOUNTER → 2022-11-20 | Outpatient (CLI) | payer OTHER ==
--- NOTE | 2022-11-20 22:33 | US ---
EXAMINATION TYPE: US thyroid st tissue head/neck DATE OF EXAM: 11/20/2022 COMPARISON: US 2020 CLINICAL INDICATION: Female, 42 years old with history of E04.2 NONTOXIC MULTINODULAR GOITER; GLAND SIZE: Right Lobe: 4.0 x 1.3 x 1.6 cm Overall Parenchyma: heterogenous Left Lobe: 3.9 x 1.4 x 1.4 cm Overall Parenchyma: heterogenous Isthmus Thickness: 0.4 cm NODULES RIGHT: # of nodules measured on right: 0 LEFT: # of nodules measured on left: 1 1. 1.2 X 0.8 x 0.9 cm, lower lateral, solid or almost completely solid, hypoechoic nodule, which is wider than tall, with ill-defined margins, without echogenic foci. TR 4. Prior size: 1.1 x 0.8 x 0.9 cm ISTHMUS: # of nodules measured in the isthmus: 0 Bilateral neck scanned, 1.0 x 0.5 x 0.8cm hypoechoic area inferior to right thyroid lobe and 0.7 x 0. 5 x 0.6cm hypoechoic area inferior to left thyroid lobe. These are relatively stable from prior exami nation. IMPRESSION: 1. Stable 1.2 cm TR 4 left thyroid lobe nodule. No new thyroid nodules. Follow-up ultrasound in one y ear is recommended. 2. There are 2 stable ovoid hypoechoic small lesions inferior to both thyroid lobes from prior examin ation and may represent small lymph nodes versus parathyroid adenomas.
[2022-11-21 02:12] LABS: Basophils # (A) 0.09 X 10*3/uL (0.00-0.10); Eosinophils # (A) 0.27 X 10*3/uL (0.04-0.35); Eosinophils % (A) 3.1 %; HCT 38.6 % (37.2-46.3); HGB 12.1 g/dL (12.0-15.0); Immature Grans, Automated 0.2 %; Lymphocytes # (A) 2.73 X 10*3/uL (0.90-5.00); Lymphocytes % (A) 30.9 %; MCHC 31.3 g/dL (32.0-37.0); MCV 92.6 fL (80.0-97.0); Mean Platelet Volume 10.2 fL (9.5-12.2); Monocytes # (A) 0.79 X 10*3/uL (0.20-1.00); Monocytes % (A) 8.9 %; NRBC Per 100 WBC 0 /100 WBCS (0.0-0.0); Neutrophils # (A) 4.93 X 10*3/uL (1.80-7.70); Neutrophils % (A) 55.9 %; Platelet Count 362 X 10*3/uL (140-440); RBC 4.17 X 10*6/uL (4.10-5.20); RDW 13.7 % (11.5-14.5); WBC 8.83 X 10*3/uL (4.50-10.00)
[2022-11-21 02:33] LABS: % Iron Saturation 16.86 (12.00-45.00); ALT 11 U/L (8-44); AST 15 U/L (13-35); African American GFR (CKD) 103.9 (60.0-200.0); Albumin 4.1 g/dL (3.8-4.9); Albumin/Globulin Ratio 1.58 (1.60-3.17); Alkaline Phosphatase 82 U/L (41-126); Blood Urea Nitrogen 12.4 mg/dL (9.0-27.0); Calcium 9.5 mg/dL (8.7-10.3); Carbon Dioxide 22.9 mmol/L (20.0-27.5); Chloride 107 mmol/L (96-109); Ferritin 16.5 ng/mL (10.0-291.0); Globulin 2.6 g/dL (1.6-3.3); Glucose 87 mg/dL (70-110); Iron 70 ug/dL (50-170); Non-African American GFR(CKD) 89.7 (60.0-200.0); Sodium 141 mmol/L (135-145); Total Bilirubin <0.15 mg/dL (0.30-1.20); Total Iron Binding Capacity 416 ug/dL (228-460); Total Protein 6.7 g/dL (6.2-8.2)
[2022-11-21 02:44] LABS: Chol/HDL Ratio 5.57 Ratio
== END | disposition home or self-care (01) ==
LOC: RADUSWWP 15:43
PROVIDERS: ATTEND Internal Medicine Endocrinology, Diabetes & Metabolism
DX: E04.2 Nontoxic multinodular goiter (principal)
CPT/HCPCS: 76536; 80053; 80061; 82306; 82607; 82728; 83540; 83550; 83721; 84146; 84439; 84443; 85025

== ENCOUNTER → 2022-11-20 | Outpatient (CLI) | payer OTHER ==
--- NOTE | 2022-11-21 08:16 | MM ---
Reason for Exam: Screening (asymptomatic). Last mammogram was performed 2 year(s) and 10 month(s) ago. Patient History: Menarche at age 12. First Full-Term at age 15. 2007, Benign Excisional Biopsy on the left side. Last menstrual period: 11/17/2022 Risk Values: Aspen 5 year model risk: 0.8%. NCI Lifetime model risk: 7.8%. Prior Study Comparison: 09/07/2018 Bilateral Screening Mammogram, [facility]. 01/03/2020 Bilateral Screening Mammogram, [facility]. Tissue Density: The breast tissue is heterogeneously dense. This may lower the sensitivity of mammography. Findings: Analyzed By CAD. There is no suspicious group of microcalcifications or new suspicious mass in either breast. Overall Assessment: Negative, BI-RAD 1 Management: Screening Mammogram of both breasts in [address] [facility] will attempt to contact patient to return for supplemental views and ultrasound if indicated. Patient should continue monthly self-breast exams. A clinical breast exam by your physician is recommended on an annual basis. This exam should not preclude additional follow-up of suspicious palpable abnormalities. Note on Aspen scores and lifetime risk: 1. A Aspen score greater than 3% is considered moderate risk. If this is the case, consider specialist referral to assess eligibility for a risk reducing agent. 2. If overall lifetime risk for the development of breast cancer is 20% or higher, the patient may qualify for future screening with alternating mammogram and breast MRI. Electronically signed and approved by: Yuri Dill DO
== END | disposition home or self-care (01) ==
LOC: RADMAMWWP 15:40
PROVIDERS: ATTEND Family Medicine
DX: Z12.31 Encounter for screening mammogram for malignant neoplasm of breast (principal)
CPT/HCPCS: 77063; 77067

== ENCOUNTER → 2023-04-14 | Outpatient (CLI) | payer OTHER ==
--- NOTE | 2023-04-14 15:53 | XR ---
EXAMINATION TYPE: XR lumbar spine 2 or 3V DATE OF EXAM: 04/14/2023 3:41 PM CLINICAL INDICATION:Female, 42 years old with history of WORK COMP S39.012A LOWER BACK PAIN; COMPARISON: None TECHNIQUE: XR lumbar spine 2 or 3V - Frontal, lateral and coned in L5-S1 lateral views of the spine. FINDINGS: No evidence of any acute osseous pathology. No evidence of loss of vertebral body height i s seen. There is grade 1 atrial disease L5-S1 alignment of the lumbar vertebral bodies. No significan t degeneration changes throughout the spine. Minimal degeneration changes with osteophyte formation. IMPRESSION: 1. No acute fracture. 2. Mild multilevel disc degeneration. 3. Grade 1 anterolisthesis of L5 on S1.
== END | disposition home or self-care (01) ==
LOC: RADXRMAIN 15:24
PROVIDERS: ATTEND Emergency Medicine
DX: S39.012A Strain of muscle, fascia and tendon of lower back, initial encounter (principal); M43.17 Spondylolisthesis, lumbosacral region; M51.36 Other intervertebral disc degeneration, lumbar region; X58.XXXA Exposure to other specified factors, initial encounter
CPT/HCPCS: 72100

== ENCOUNTER → 2024-01-06 | Outpatient (CLI) | payer SELFPAY ==
[2024-01-06 16:31] LABS: T4, Free (Free Thyroxine) 1.6 ng/dL (0.80-1.80)
[2024-01-06 17:11] LABS: Prolactin 72.5 ng/mL (2.800-29.200)
== END | disposition home or self-care (01) ==
LOC: LABWHC1 11:27
PROVIDERS: ATTEND Internal Medicine Endocrinology, Diabetes & Metabolism
DX: E04.2 Nontoxic multinodular goiter (principal)
CPT/HCPCS: 36415; 84146; 84439; 84443

== ENCOUNTER → 2024-01-09 | Outpatient (CLI) | payer OTHER ==
--- NOTE | 2024-01-09 11:28 | US ---
EXAMINATION TYPE: US thyroid st tissue head/neck DATE OF EXAM: 01/09/2024 COMPARISON: US 2022 CLINICAL INDICATION: Female, 43 years old with history of E04.2 MULTINODULAR GOITER; GLAND SIZE: Right Lobe: 4.0 x 1.5 x 2.0 cm Overall Parenchyma: heterogeneous Left Lobe: 3.9 x 1.3 x 1.3 cm Overall Parenchyma: heterogeneous Isthmus Thickness: 0.4 cm NODULES RIGHT: # of nodules measured on right: 0 LEFT: # of nodules measured on left: 1 1. 1.1 X 0.8 x 0.9 cm, lower mid Prior size: 1.2 x 0.8 x 0.9 cm TIRADS Score: 4 TIRADS Category 4: Composition: Solid or almost completely solid (2 points). Echogenicity: Hypoechoic (2 points). Shape: Wider than tall (0 points). Margin: Smooth (0 points). Echogenic foci: None or large comet-tail artifacts (0 points) Recommendation: If >1.5cm: FNA; If >1cm: Follow up at 1,2, 3,5 years ISTHMUS: # of nodules measured in the isthmus: 0 Bilateral neck scanned, 0.9 x 0.5 x 1.1cm hypoechoic area inferior to right lobe, 0.9 x 0.5 x 0.8cm h ypoechoic area inferior to left lobe. IMPRESSION: 1. Left thyroid nodule which criteria for follow-up in one year. 2. Hypoechoic area inferior to the right thyroid lobe possibly representing parathyroid adenoma. Cor relate with serum markers. Consider nuclear medicine sestamibi scan for confirmation
== END | disposition home or self-care (01) ==
LOC: RADUSWWP 09:13
PROVIDERS: ATTEND Internal Medicine Endocrinology, Diabetes & Metabolism
DX: E04.2 Nontoxic multinodular goiter (principal)
CPT/HCPCS: 76536